=== PATIENT | female | born 1965 | race Caucasian/White ===

== ENCOUNTER → 2021-10-03 10:27 | Outpatient (BNVA) | payer OTHER, SELFPAY | PROVIDERS: PCP Internal Medicine; Visit Provider Nurse Practitioner Family | DX: R41.89 Other symptoms and signs involving cognitive functions and awareness (principal); R25.1 Tremor, unspecified; Z86.79 Personal history of other diseases of the circulatory system; Z79.899 Other long term (current) drug therapy | CPT/HCPCS: 99212 ==

== ENCOUNTER → 2022-01-03 09:44 | Outpatient (BNVA) | payer OTHER, MEDICAID, SELFPAY | PROVIDERS: PCP Internal Medicine; Visit Provider Nurse Practitioner Family | DX: R41.3 Other amnesia (principal); I61.8 Other nontraumatic intracerebral hemorrhage; R25.1 Tremor, unspecified; R41.89 Other symptoms and signs involving cognitive functions and awareness | CPT/HCPCS: 99212 ==

== ENCOUNTER → 2022-08-08 09:07 | Outpatient (BNVA) | payer OTHER, SELFPAY | PROVIDERS: PCP Internal Medicine; Visit Provider Nurse Practitioner Family | DX: R41.3 Other amnesia (principal); R25.1 Tremor, unspecified; R41.89 Other symptoms and signs involving cognitive functions and awareness; F32.A Depression, unspecified; I61.8 Other nontraumatic intracerebral hemorrhage | CPT/HCPCS: 99212 ==

== ENCOUNTER → 2022-10-20 09:24 | Outpatient (BNVA) | payer OTHER, SELFPAY | PROVIDERS: PCP Internal Medicine; Visit Provider Nurse Practitioner Family | DX: R41.3 Other amnesia (principal); R25.1 Tremor, unspecified; R41.89 Other symptoms and signs involving cognitive functions and awareness; I61.8 Other nontraumatic intracerebral hemorrhage; F32.A Depression, unspecified | CPT/HCPCS: 99212 ==

== ENCOUNTER → 2023-01-21 09:01 | Outpatient (BNVA) | payer OTHER, SELFPAY | PROVIDERS: PCP Internal Medicine; Visit Provider Nurse Practitioner Family | DX: R41.3 Other amnesia (principal); R25.1 Tremor, unspecified; R41.89 Other symptoms and signs involving cognitive functions and awareness; M54.2 Cervicalgia; F32.A Depression, unspecified; Z86.79 Personal history of other diseases of the circulatory system; Z79.899 Other long term (current) drug therapy | CPT/HCPCS: 99212 ==

== ENCOUNTER 2023-02-06 09:02 | Outpatient (REF) | payer MEDICARE, SELFPAY ==
--- NOTE | ~2023-02-06 | XR_ITS ---
EXAMINATION: XR CERVICAL SPINE CLINICAL INFORMATION: Cervical neck pain COMPARISON: None available. TECHNIQUE: 7 views of the cervical spine, inclusive of flexion and extension views, were obtained. FINDINGS: Advanced multilevel cervical spondylosis with prominent anterior osteophytes and xxkjwtld-zh-upvcoh loss of disc space height at C3-C4, C4-C5, C5-C6, and C6-C7. Minimal retrolisthesis of C3 on C4 persists on flexion and extension. XR/XR cervical spine w flex/ext IMPRESSION: Otdqoozp-[id number]-[id number] degenerative changes at C3-C7.
== END 2023-02-06 09:03 | disposition home or self-care (01) ==
LOC: HO.XRAY 09:02
PROVIDERS: Visit Provider Nurse Practitioner Family
DX: M54.2 Cervicalgia (principal)
CPT/HCPCS: 72052